=== PATIENT | male | born 1985 | race Caucasian/White ===

== ENCOUNTER 2024-09-03 16:03 | Emergency (ER) | payer BC ==
[~2024-09-03] VITALS: Ht 177.8 cm; Wt 76.7 kg
[2024-09-03] MEDS ORDERED: THIAMINE HCL 100 MG TABLET ONE (16:16)
[2024-09-03] MEDS ORDERED: ONDANSETRON HCL/PF 4 MG/2 ML VIAL ONE (16:16)
[2024-09-03] MEDS: IV NS 0.9% 1,000 ML BAG IV ONE ×2 (16:25→18:45)
[2024-09-03] MEDS: ONDANSETRON HCL/PF - ER 4 MG/2 ML VIAL IV ONE (16:25)
[2024-09-03] MEDS ORDERED: PHENOBARBITAL SODIUM 130 MG/ML VIAL IV ONE (16:30)
[2024-09-03] MEDS: PHENOBARBITAL SODIUM 780 MG in IV NS 0.9% 94 ML IV ONE (16:55)
[2024-09-03] MEDS: THIAMINE HCL 100 MG TABLET PO ONE (16:58)
[2024-09-03] MEDS ORDERED: PHENOBARBITAL SODIUM IV ONE (17:00)
[2024-09-03] MEDS ORDERED: NS 0.9% IV ONE (17:00)
[2024-09-03] MEDS ORDERED: AMLO-213 PO ×2 (18:36→22:44)
[2024-09-03] MEDS ORDERED: CHLO25CA22 PO ×3 (18:36→22:44)
[2024-09-03 19:50] VITALS: BP 154/80; TEMP 97.9; O2SAT 98
== END 2024-09-03 19:50 | disposition home or self-care (01) ==
LOC: ER 16:10
DX: F10.939 Alcohol use, unspecified with withdrawal, unspecified (principal); R11.2 Nausea with vomiting, unspecified; I10 Essential (primary) hypertension; Y90.9 Presence of alcohol in blood, level not specified
CPT/HCPCS: 99285; 96365; 96361; 96375; J2560; J2405 ×2; J7030 ×2; A4223